=== PATIENT | female | born 1975 | race Caucasian/White ===

== ENCOUNTER 2018-11-07 18:06 | Emergency (ER) | payer OTHER ==
[2018-11-07] MEDS ORDERED: IV RINGERS SOLUTION,LACTATED 1,000 ML IV SCH (18:20)
--- NOTE | 2018-11-07 18:20 | ED.ADGEN ---
Past History Past Surgical History bladder sling Adult General Chief Complaint Chief Complaint ".. I got a virus or something.. I started vomiting.. nauseated. .. pain..in my abdomen.. and this Rt. flank..it been coming on the past 24 hrs.. but it is really severe tonight... I just finished my menstrual.,,," [facility] HPI Patient is a 43 year old female dependent who presents with above hx and complaints of severe abd.pain, right flank pain, nausea and vomiting, and generalized malaise. Patient normally healthy. Has had some past history of ovarian cyst. Patient denies any dysuria or vaginal discharge. No recent travel. No specific ill contacts. No history of bad food intake. No history of trauma. Patient has had 2 pregnancies with 2 live births. No history of STDs. Patient has been vomiting today with some dry heaves this afternoon. There is remote history of irritable bowel symptoms when she was much younger. No specific history of endometriosis. has not been overseas recently. No family history of colitis. No history of renal stones. Pt. normally follows at [facility]. Review of Systems Review of Systems Constitutional: Denies fever or chills [] Eyes: Denies change in visual acuity, redness, or eye pain [] HENT: Denies nasal congestion or sore throat [] Respiratory: Denies cough or shortness of breath [] Cardiovascular: No additional information not addressed in HPI [] GI:, Complaints of generalized abdominal pain, nausea, vomiting, some localization to epigastric, right upper quadrant and right flank. Denies Bloody stools or diarrhea [] : Denies dysuria or hematuria [] Musculoskeletal: Does have some right ankle back pain. Denies joint pain [] Integument: Denies rash or skin lesions [] Neurologic: Denies headache, focal weakness or sensory changes [] Endocrine: Denies polyuria or polydipsia [] All other systems were reviewed and found to be within normal limits, except as documented in this note. Family History Family History Noncontributory Current Medications Current Medications Current Medications Medications (Trade) Dose Ordered Sig/Reva Start Time Stop Time Status Last Admin Dose Admin Famotidine (Pepcid Vial) 20 mg 1X ONCE 11/07/18 18:30 11/07/18 19:07 DC 11/07/18 18:38 20 MG Iohexol (Omnipaque 240 Mg/ml) 50 ml 1X ONCE 11/07/18 19:15 11/07/18 19:16 DC 11/07/18 20:41 50 ML Iohexol (Omnipaque 300 Mg/ml) 75 ml 1X ONCE 11/07/18 19:15 11/07/18 19:16 DC 11/07/18 20:41 75 ML Ketorolac Tromethamine (Toradol 30mg Vial) 30 mg 1X ONCE 11/07/18 22:15 11/07/18 22:16 DC 11/07/18 22:23 30 MG Lactated Ringer's 1,000 ml @ 1,000 mls/hr Q1H 11/07/18 18:20 11/07/18 19:19 DC 11/07/18 18:40 1,000 MLS/HR Magnesium Hydroxide (Milk Of Magnesia) 2,400 mg 1X ONCE 11/07/18 20:45 11/07/18 20:46 DC 11/07/18 21:17 2,400 MG Morphine Sulfate (Morphine 10mg Syringe) 10 mg 1X ONCE 11/07/18 21:45 11/07/18 21:46 DC 11/07/18 21:41 10 MG Ondansetron HCl (Zofran) 8 mg 1X ONCE 11/08/18 01:00 11/08/18 01:01 DC 11/08/18 00:54 8 MG Potassium Chloride (KCl Oral Soln) 40 meq 1X ONCE 11/07/18 20:45 11/07/18 20:46 DC 11/07/18 21:17 40 MEQ Allergies Allergies Allergies Uncoded Allergies Type Severity Reaction Last Updated Verified ANTIBIOTICS- UNKNOWN NAME Allergy Unknown 11/07/18 Physical Exam Physical Exam Constitutional: Moderately acute distress, non-toxic appearance. [] HENT: Normocephalic, atraumatic, bilateral external ears normal, oropharynx moist, no oral exudates, nose normal. [] Eyes: PERRLA, EOMI, conjunctiva normal, no discharge. [] Neck: Normal range of motion, no tenderness, supple, no stridor. [] Cardiovascular:Heart rate regular rhythm, no murmur [] Lungs & Thorax: Bilateral breath sounds clear to auscultation [] Abdomen: Bowel sounds normal, soft, epigastric, right mid abdomen and flank tenderness, does have some generalized abdomen pain, no masses, no pulsatile masses. There is some rebound to right mid abdomen. Patient declined pelvic exam and rectal exam at this time. Skin: Warm, dry, no erythema, no rash. [] Back: No tenderness, no CVA tenderness. [] Extremities: No tenderness, no cyanosis, no clubbing, ROM intact, no edema. Mild psoas on right Neurologic: Alert and oriented X 3, normal motor function, normal sensory function, no focal deficits noted. [] Psychologic: Affect anxious and tearful, judgement normal, mood depressed Current Patient Data Vital Signs Vital Signs Date Time Temp Pulse Resp B/P (MAP) Pulse Ox O2 Delivery O2 Flow Rate FiO2 11/08/18 00:06 65 17 97 Room Air 11/07/18 21:20 130/81 (97) 11/07/18 18:10 97.9 Lab Results Laboratory Tests Test 11/07/18 18:20 White Blood Count 8.1 x10^3/uL (4.0-11.0) Red Blood Count 4.70 x10^6/uL (3.50-5.40) Hemoglobin 13.8 g/dL (12.0-15.5) Hematocrit 39.9 % (36.0-47.0) Mean Corpuscular Volume 85 fL (79-100) Mean Corpuscular Hemoglobin 29 pg (25-35) Mean Corpuscular Hemoglobin Concent 35 g/dL (31-37) Red Cell Distribution Width 13.1 % (11.5-14.5) Platelet Count 312 x10^3/uL (140-400) Neutrophils (%) (Auto) 62 % (31-73) Lymphocytes (%) (Auto) 28 % (24-48) Monocytes (%) (Auto) 9 % (0-9) Eosinophils (%) (Auto) 1 % (0-3) Basophils (%) (Auto) 1 % (0-3) Neutrophils # (Auto) 5.0 x10^3uL (1.8-7.7) Lymphocytes # (Auto) 2.2 x10^3/uL (1.0-4.8) Monocytes # (Auto) 0.8 x10^3/uL (0.0-1.1) Eosinophils # (Auto) 0.1 x10^3/uL (0.0-0.7) Basophils # (Auto) 0.0 x10^3/uL (0.0-0.2) Prothrombin Time 10.5 SEC (9.4-11.4) Prothrombin Time INR 1.1 (0.9-1.1) PTT 24 SEC (23-33) Urine Collection Type Unknown Urine Color Yellow Urine Clarity Cloudy Urine pH 7.0 Urine Specific [place] 1.020 Urine Protein 30 mg/dl (NEG-TRACE) Urine Glucose (UA) Neg mg/dL (NEG) Urine Ketones (Stick) Trace mg/dL (NEG) Urine Blood Large (NEG) Urine Nitrite Neg (NEG) Urine Bilirubin Neg (NEG) Urine Urobilinogen Dipstick 1 mg/dL (0.2 mg/dL) Urine Leukocyte Esterase Neg (NEG) Urine RBC 0 /HPF (0-2) Urine WBC 1-4 /HPF (0-4) Urine Squamous Epithelial Cells Mod /LPF Urine Amorphous Sediment Present /HPF Urine Bacteria Mod /HPF (0-FEW) Urine Mucus Mod /LPF Maternal Serum HCG Beta Subunit < 1 mIU/mL (0-6) Sodium Level 139 mmol/L (136-145) Potassium Level 3.3 mmol/L (3.5-5.1) L Chloride Level 103 mmol/L (98-107) Carbon Dioxide Level 25 mmol/L (21-32) Anion Gap 11 (6-14) Blood Urea Nitrogen 6 mg/dL (7-20) L Creatinine 0.7 mg/dL (0.6-1.0) Estimated GFR (Cockcroft-Gault) 91.8 Glucose Level 118 mg/dL (70-99) H Calcium Level 8.7 mg/dL (8.5-10.1) Total Bilirubin 0.7 mg/dL (0.2-1.0) Direct Bilirubin 0.1 mg/dL (0.0-0.2) Aspartate Amino Transferase (AST) 27 U/L (15-37) Alanine Aminotransferase (ALT) 24 U/L (14-59) Alkaline Phosphatase 51 U/L (46-116) Troponin I Quantitative < 0.017 ng/mL (0-0.055) Total Protein 7.5 g/dL (6.4-8.2) Albumin 4.2 g/dL (3.4-5.0) Lipase 102 U/L (73-393) Urine Opiates Screen Neg (NEG) Urine Methadone Screen Neg (NEG) Urine Barbiturates Neg (NEG) Urine Phencyclidine Screen Neg (NEG) Urine Amphetamine/Methamphetamine Neg (NEG) Urine Benzodiazepines Screen Neg (NEG) Urine Cocaine Screen Neg (NEG) Urine Cannabinoids Screen Neg (NEG) Urine Ethyl Alcohol Neg (NEG) EKG EKG My interpretation EKG shows a sinus bradycardia at 52 bpm. No findings acute STEMI of contralateral changes.[] Radiology/Procedures Radiology/Procedures My interpretation of abdomen film shows no acute cardiopulmonary findings. No free air in the diaphragm. Nonspecific bowel gas pattern. CT abdomen does show a right adnexal mass 5.5 x 5 cm. Consistent with ovarian complex cyst vs cystoadenoma versus, hemorrhagic cyst,vs possible ovarian neoplasm.. See formal report when available. Ultrasound of the ovaries show adequate flow to both ovaries. See formal report when available[] Course & Med Decision Making Course & Med Decision Making Pertinent Labs and Imaging studies reviewed. (See chart for details) Patient declined a complete pelvic exam at this time. Patient declined transfer to [facility]. Patient wants to go home and follow up with Pam. Encouraged patient to stay on a clear fluid diet. Push fruit juices. Patient strongly encouraged to have prompt follow-up with CANAL DRIVER. Patient take Zofran as needed for nausea and vomiting. Patient take Vicoprofen up 4 times a day for marked pain. Patient return if any concerns. Must follow up. [] Final Impression Final Impression 1. Abdomen Pain[] 2. Nausea and vomiting 3. Hypokalemia 3.3 4. Right adnexal cyst- 5.5 x 5.0- Dragon Disclaimer Dragon Disclaimer This electronic medical record was generated, in whole or in part, using a voice recognition dictation system. Dragon Disclaimer This chart was dictated in whole or in part using Voice Recognition software in a busy, high-work load, and often noisy Emergency Department environment. It may contain unintended and wholly unrecognized errors or omissions. Discharge Summary Visit Information Final Diagnosis Problems Medical Problems: (1) Ovarian mass, right Status: Acute (2) Pain in the abdomen Status: Acute Brief Hospital Course Allergies Allergies Uncoded Allergies Type Severity Reaction Last Updated Verified ANTIBIOTICS- UNKNOWN NAME Allergy Unknown 11/07/18 Vital Signs Vital Signs Date Time Temp Pulse Resp B/P (MAP) Pulse Ox O2 Delivery O2 Flow Rate FiO2 11/08/18 00:06 65 17 97 Room Air 11/07/18 21:20 130/81 (97) 11/07/18 18:10 97.9 Lab Results Laboratory Tests Test 11/07/18 18:20 White Blood Count 8.1 x10^3/uL (4.0-11.0) Red Blood Count 4.70 x10^6/uL (3.50-5.40) Hemoglobin 13.8 g/dL (12.0-15.5) Hematocrit 39.9 % (36.0-47.0) Mean Corpuscular Volume 85 fL (79-100) Mean Corpuscular Hemoglobin 29 pg (25-35) Mean Corpuscular Hemoglobin Concent 35 g/dL (31-37) Red Cell Distribution Width 13.1 % (11.5-14.5) Platelet Count 312 x10^3/uL (140-400) Neutrophils (%) (Auto) 62 % (31-73) Lymphocytes (%) (Auto) 28 % (24-48) Monocytes (%) (Auto) 9 % (0-9) Eosinophils (%) (Auto) 1 % (0-3) Basophils (%) (Auto) 1 % (0-3) Neutrophils # (Auto) 5.0 x10^3uL (1.8-7.7) Lymphocytes # (Auto) 2.2 x10^3/uL (1.0-4.8) Monocytes # (Auto) 0.8 x10^3/uL (0.0-1.1) Eosinophils # (Auto) 0.1 x10^3/uL (0.0-0.7) Basophils # (Auto) 0.0 x10^3/uL (0.0-0.2) Prothrombin Time 10.5 SEC (9.4-11.4) Prothromb Time International Ratio 1.1 (0.9-1.1) Activated Partial Thromboplast Time 24 SEC (23-33) Urine Collection Type Unknown Urine Color Yellow Urine Clarity Cloudy Urine pH 7.0 Urine Specific [place] 1.020 Urine Protein 30 mg/dl (NEG-TRACE) Urine Glucose (UA) Neg mg/dL (NEG) Urine Ketones (Stick) Trace mg/dL (NEG) Urine Blood Large (NEG) Urine Nitrite Neg (NEG) Urine Bilirubin Neg (NEG) Urine Urobilinogen Dipstick 1 mg/dL (0.2 mg/dL) Urine Leukocyte Esterase Neg (NEG) Urine RBC 0 /HPF (0-2) Urine WBC 1-4 /HPF (0-4) Urine Squamous Epithelial Cells Mod /LPF Urine Amorphous Sediment Present /HPF Urine Bacteria Mod /HPF (0-FEW) Urine Mucus Mod /LPF Maternal Serum HCG Beta Subunit < 1 mIU/mL (0-6) Sodium Level 139 mmol/L (136-145) Potassium Level 3.3 mmol/L (3.5-5.1) Chloride Level 103 mmol/L (98-107) Carbon Dioxide Level 25 mmol/L (21-32) Anion Gap 11 (6-14) Blood Urea Nitrogen 6 mg/dL (7-20) Creatinine 0.7 mg/dL (0.6-1.0) Estimated GFR (Cockcroft-Gault) 91.8 Glucose Level 118 mg/dL (70-99) Calcium Level 8.7 mg/dL (8.5-10.1) Total Bilirubin 0.7 mg/dL (0.2-1.0) Direct Bilirubin 0.1 mg/dL (0.0-0.2) Aspartate Amino Transf (AST/SGOT) 27 U/L (15-37) Alanine Aminotransferase (ALT/SGPT) 24 U/L (14-59) Alkaline Phosphatase 51 U/L (46-116) Troponin I Quantitative < 0.017 ng/mL (0-0.055) Total Protein 7.5 g/dL (6.4-8.2) Albumin 4.2 g/dL (3.4-5.0) Lipase 102 U/L (73-393) Urine Opiates Screen Neg (NEG) Urine Methadone Screen Neg (NEG) Urine Barbiturates Neg (NEG) Urine Phencyclidine Screen Neg (NEG) Urine Amphetamine/Methamphetamine Neg (NEG) Urine Benzodiazepines Screen Neg (NEG) Urine Cocaine Screen Neg (NEG) Urine Cannabinoids Screen Neg (NEG) Urine Ethyl Alcohol Neg (NEG) Brief Hospital Course Ms. Arauz is a 43 old female who presented with nausea, vomiting and generalize abd. pain. Found to have large Rt. complex ovarian complex cyst. Declined transfer to [facility]. Pt. strongly encourage to keep follow up promptly with primary and [employer] OPERATOR HELPER. Discharge Information Condition at Discharge: Improved, Stable Disposition/Orders: D/C to Home Dischare Medications Current Medications Lactated Ringer's 1,000 ml @ 1,000 mls/hr Q1H IV Last administered on at 18:40; Admin Dose 1,000 MLS/HR; Start 11/07/18 at 18:20; Stop 11/07/18 at 19:19; Status DC Ondansetron HCl (Zofran) 8 mg 1X ONCE IV Last administered on 11/07/18at 18:39 ; Admin Dose 8 MG; Start 11/07/18 at 18:30; Stop 11/07/18 at 19:07; Status DC Famotidine (Pepcid Vial) 20 mg 1X ONCE IVP Last administered on 11/07/18at 18: 38; Admin Dose 20 MG; Start 11/07/18 at 18:30; Stop 11/07/18 at 19:07; Status DC Morphine Sulfate (Morphine 10mg Syringe) 10 mg 1X ONCE SQ Last administered on 11/07/18at 18:38; Admin Dose 10 MG; Start 11/07/18 at 18:30; Stop 11/07/18 at 19:07; Status DC Iohexol (Omnipaque 240 Mg/ml) 50 ml 1X ONCE PO Last administered on 11/07/18at 20:41; Admin Dose 50 ML; Start 11/07/18 at 19:15; Stop 11/07/18 at 19:16; Status DC Iohexol (Omnipaque 300 Mg/ml) 75 ml 1X ONCE IV Last administered on 11/07/18at 20:41; Admin Dose 75 ML; Start 11/07/18 at 19:15; Stop 11/07/18 at 19:16; Status DC Potassium Chloride (KCl Oral Soln) 40 meq 1X ONCE PO Last administered on 11/07at 21:17; Admin Dose 40 MEQ; Start 11/07/18 at 20:45; Stop 11/07/18 at 20:46 ; Status DC Magnesium Hydroxide (Milk Of Magnesia) 2,400 mg 1X ONCE PO Last administered on 11/07/18at 21:17; Admin Dose 2,400 MG; Start 11/07/18 at 20:45; Stop 11/07/18 at 20:46; Status DC Morphine Sulfate (Morphine 10mg Syringe) 10 mg 1X ONCE SQ Last administered on 11/07/18at 21:41; Admin Dose 10 MG; Start 11/07/18 at 21:45; Stop 11/07/18 at 21:46; Status DC Ondansetron HCl (Zofran) 4 mg 1X ONCE IM Last administered on 11/07/18at 21:40 ; Admin Dose 4 MG; Start 11/07/18 at 21:45; Stop 11/07/18 at 21:46; Status DC Ketorolac Tromethamine (Toradol 30mg Vial) 30 mg 1X ONCE IV Last administered on 11/07/18at 22:23; Admin Dose 30 MG; Start 11/07/18 at 22:15; Stop 11/07/18 at 22:16; Status DC Ondansetron HCl (Zofran) 8 mg 1X ONCE IM Last administered on 11/08/18at 00:54 ; Admin Dose 8 MG; Start 11/08/18 at 01:00; Stop 11/08/18 at 01:01; Status DC Active Scripts Active Acetaminophen 500 Mg Tablet 1,000 Mg PO QIDPRN PRN Zofran (Ondansetron Hcl) 8 Mg Tablet 8 Mg PO QIDPRN PRN Hydrocodone-Ibuprofen 7.5-200 (Hydrocodone/Ibuprofen) 1 Each Tablet 1 Tab PO PRN Q6HRS PRN LAKHWINDER BERRIOS MD Nov 07, 2018 18:20
[2018-11-07] MEDS ORDERED: FAMOTIDINE 20 MG/2 ML VIAL IVP ONE (18:30)
[2018-11-07] MEDS ORDERED: MORPHINE SULFATE 10 MG/ML SYRINGE. SQ ONE ×2 (18:30→21:45)
[2018-11-07] MEDS ORDERED: ONDANSETRON PF 4 MG/2 ML VIAL. IV ONE (18:30)
[2018-11-07 18:38] LABS: BASO % 1 % (0-3); EOS # 0.1 x10^3/uL (0.0-0.7); EOS % 1 % (0-3); HEMATOCRIT 39.9 % (36.0-47.0); HEMOGLOBIN 13.8 g/dL (12.0-15.5); LYMPH # 2.2 x10^3/uL (1.0-4.8); LYMPH % 28 % (24-48); MEAN CORPUSCULAR HEMOGLOBIN 29 pg (25-35); MEAN CORPUSCULAR HGB CONC 35 g/dL (31-37); MEAN CORPUSCULAR VOLUME 85 fL (79-100); MONO # 0.8 x10^3/uL (0.0-1.1); MONO % 9 % (0-9); NEUT % 62 % (31-73); PLATELET COUNT 312 x10^3/uL (140-400); RED CELL DISTRIBUTION WIDTH 13.1 % (11.5-14.5); WHITE BLOOD COUNT 8.1 x10^3/uL (4.0-11.0)
[2018-11-07 18:45] LABS: AMPHETAMINE/METHAMPHETAMINE NEG (NEG); BARBITURATES NEG (NEG); BENZODIAZEPINES NEG (NEG); CANNABINOIDS NEG (NEG); COCAINE NEG (NEG); METHADONE NEG (NEG); OPIATES NEG (NEG); PHENCYCLIDINE NEG (NEG)
[2018-11-07 18:51] LABS: AMORPHOUS SEDIMENT,UR PRESENT /HPF; BACTERIA,URINE MOD /HPF (0-FEW); BILIRUBIN,URINE NEG (NEG); CLARITY,URINE CLOUDY; COLOR,URINE YELLOW; GLUCOSE,URINE NEG (NEG); NITRITE,URINE NEG (NEG); RBC,URINE 0 /HPF (0-2); SQUAMOUS EPITHELIAL CELL,UR MOD /LPF; UROBILINOGEN,URINE 1 mg/dL (0.2 mg/dL)
[2018-11-07 19:02] LABS: ALBUMIN 4.2 g/dL (3.4-5.0); CALCIUM 8.7 mg/dL (8.5-10.1); CREATININE 0.7 mg/dL (0.6-1.0); DIRECT BILIRUBIN 0.1 mg/dL (0.0-0.2); GFR 91.8; POTASSIUM 3.3 mmol/L (3.5-5.1); TOTAL BILIRUBIN 0.7 mg/dL (0.2-1.0); TOTAL PROTEIN 7.5 g/dL (6.4-8.2)
[2018-11-07] MEDS ORDERED: IOHEXOL 300 MG/ML 75 ML VIAL. IV ONE (19:15)
[2018-11-07] MEDS ORDERED: IOHEXOL 240 MG/ML 50ML VIAL. PO ONE (19:15)
[2018-11-07] MEDS ORDERED: POTASSIUM CHLORIDE 20 MEQ/15 ML ORAL LIQUID. PO ONE (20:45)
[2018-11-07] MEDS ORDERED: MAGNESIUM HYDROXIDE 2,400 MG/30 ML ORAL.SUSP. PO ONE (20:45)
[2018-11-07 21:20] VITALS: BP 130/81
--- NOTE | 2018-11-07 21:25 | RAD ---
PQRS Compliance Statement: One or more of the following individualized dose reduction techniques were utilized for this examination: 1. Automated exposure control 2. Adjustment of the mA and/or kV according to patient size 3. Use of iterative reconstruction technique CT abdomen/pelvis with contrast 11/07/2018 8:44 PM INDICATION: Low pelvic pain COMPARISON: None available TECHNIQUE: Multiple axial CT images of the abdomen and pelvis were obtained after the intravenous administration of 75 mL Omnipaque 300. Coronal and sagittal reformats are provided. FINDINGS: Lung bases are clear. Heart size is within normal limits. There is mild periportal edema. Otherwise no suspicious hepatic lesion is identified. Gallbladder is normal in appearance. Spleen is not enlarged. Adrenal glands and pancreas are normal in appearance. The abdominal aorta is normal in course and caliber. There are no pathologically enlarged lymph nodes in the abdomen and pelvis. There is no abdominal free fluid. There is no free intraperitoneal air. Oral contrast was administered. Opacified bowel loops demonstrate normal mucosal fold pattern. Small and large bowel are normal in caliber. There is no evidence for bowel obstruction. There are no pericolonic inflammatory changes. A normal, nondilated appendix is visualized without adjacent inflammatory changes. The kidneys enhance symmetrically. There is no suspicious renal mass. There is no hydronephrosis. There are no suspected calculi within the kidneys, ureters or urinary bladder. Urinary bladder is within normal limits given degree of distention. There is a right adnexal cyst cyst measuring 5.5 x 5.0 cm. Follicular changes are identified in the left adnexa. Uterus is normal by CT. Trace free fluid is identified within the dependent portion of the pelvis. No suspicious osseous abnormality is identified. IMPRESSION: 1. There is a 5.5 x 5.0 cm cyst in the right adnexa which may represent a dominant follicle. Further evaluation with pelvic ultrasound may be of benefit if symptoms are localized to this region to assess for perfusion of the ovary. 2. No evidence for bowel obstruction or inflammation. Appendix is normal. Electronically signed by: Radhika Marrero MD (11/07/2018 9:22 PM) [facility]
[2018-11-07] MEDS ORDERED: ONDANSETRON PF 4 MG/2 ML VIAL. IM ONE (21:45)
[2018-11-07] MEDS ORDERED: KETOROLAC 30 MG/ML VIAL. IV ONE (22:15)
--- NOTE | 2018-11-07 22:57 | RAD ---
Acute Abdominal Series: 11/07/2018 6:31 PM Reason for study: ALL OVER ABDOMINAL PAIN WITH NAUSEA ONSET LAST NIGHT. Comparison studies: None available. Technique: Frontal view of the chest was obtained along with supine and upright views of the abdomen. Findings: Nonobstructive bowel gas pattern. No air fluid levels or free air. . Phlebolith noted within the pelvis. The lungs are clear without acute consolidative opacity. No pleural effusion or pneumothorax. The cardiac and mediastinal contours are normal. Visualized osseous structures are intact. IMPRESSION: 1. Nonobstructed bowel gas pattern. 2. No acute cardiopulmonary findings. Electronically signed by: Radhika Marrero MD (11/07/2018 10:54 PM) [facility]
--- NOTE | 2018-11-07 23:49 | RAD ---
US PELVIS: 11/07/2018 10:46 PM INDICATION: 43 years old Female. Pelvic pain, cyst seen on CT COMPARISON: CT abdomen such pelvis November 07, 2018. TECHNIQUE: Transabdominal sonographic evaluation of the pelvis was performed. Grayscale, color Doppler and spectral waveform analysis were utilized. FINDINGS: UTERUS: Size: 10.3 x 5.3 x 3.7 cm. Masses: None. Endometrium: 6 mm. RIGHT OVARY: 6.7 x 6.7 x 6.0 cm. There is a 5.5 x 4.8 x 4.8 cm cyst with a mural nodule containing flow. Marrow nodule measures approximately 1.8 cm. LEFT OVARY: 3.3 x 2.7 x 2.2 cm. Unremarkable. Arterial and venous waveform are identified bilaterally at the time of imaging. FREE FLUID: None. URINARY BLADDER: Unremarkable. IMPRESSION: 1. There is a cyst with a mural nodule in the right ovary measuring 5.5 x 4.8 x 4.8 cm. Consideration may be given for an ovarian cystadenoma or cystadenocarcinoma or alternate ovarian neoplasm. Recommend gynecologic evaluation. MRI may be of benefit if clinically warranted. 2. Perfusion is noted to the ovaries bilaterally at the time of imaging. Electronically signed by: Radhika Marrero MD (11/07/2018 11:46 PM) [facility]
[2018-11-08] MEDS ORDERED: ONDA8TAB9 PO (00:24)
[2018-11-08] MEDS ORDERED: HYDR-1179 PO (00:24)
[2018-11-08] MEDS ORDERED: ACET500T68 PO (00:24)
[2018-11-08] MEDS ORDERED: ONDANSETRON PF 4 MG/2 ML VIAL. IM ONE (01:00)
--- NOTE | 2018-11-08 22:55 | EKG ---
[address] [address] Test Date: 2018-11-07 Test Time: 18:44:58 Pat Name: BRENNEN VOSS Department: Room: Gender: F [employer]: : 1975 Requested By: LAKHWINDER BERRIOS Order Number: [id number] Reading MD: Lee Rubi Measurements Intervals [place] Rate: 52 P: -28 ME: 154 QRS: 76 QRSD: 78 T: 64 QT: 414 QTc: 387 Interpretive Statements SINUS RHYTHM NORMAL ECG RI6.01 No previous ECG available for comparison Electronically Signed On 11-19-2018 10:13:30 [employer] by Lee Rubi
== END 2018-11-08 01:11 | disposition home or self-care (01) ==
LOC: ER 18:06
DX: N83.201 Unspecified ovarian cyst, right side (principal); E87.6 Hypokalemia; R11.2 Nausea with vomiting, unspecified; Z88.1 Allergy status to other antibiotic agents
CPT/HCPCS: 36415; 74022; 74177; 76856; 80048; 80076; 80307; 81001; 83690; 84484; 84702; 85025; 85610; 85730; 87086; 93005; 96361; 96372; 96374; 96375; 99284; J1885; J2270; J2405; J3490; J7120; Q9966; Q9967